=== PATIENT | female | born 1985 | race Caucasian/White ===

== ENCOUNTER 2018-11-15 19:23 | Emergency (ER) | payer OTHER ==
--- NOTE | 2018-11-15 19:39 | EDPHY ---
H & P Stated Complaint: RIGHT ACHILLES PAIN WHILE PLAYING VOLLYBALL - Personal History LMP (Females 10-55): 1-7 Days Ago Current Tetanus/Diphtheria Vaccine: Yes Current Tetanus Diphtheria and Acellular Pertussis (TDAP): Yes - Medical/Surgical History Hx Asthma: No Hx Chronic Respiratory Disease: No Hx Diabetes: No Hx Cardiac Disease: No Hx Renal Disease: No Hx Cirrhosis: No Hx Alcoholism: No Hx HIV/AIDS: No Hx Splenectomy or Spleen Trauma: No Other PMH: DENIES - Social History Smoking Status: Never smoked Time Seen by Provider: 11/15/18 19:38 HPI/ROS: CHIEF COMPLAINT: "I think something's wrong with my Achilles" HISTORY OF PRESENT ILLNESS: The patient is a 33 y/o female arriving with her friend and boyfriend complaining of a right ankle injury that occurred while playing volleyball this evening. She attempted to step forward towards the net and says, "it felt like someone threw a ball at the back of my foot." This was associated with an audible pop and she fell forward to the ground. She has dull pain in her ankle that is worse with straight leg raise. She describes a "weird " and "loose" sensation and though she can somewhat bear weight, she cannot walk without collapsing. She denies weakness in her toes or paresthesias anywhere. She denies prior ankle injuries or pain anywhere else. She took 800mg ibuprofen prior to arrival. She is generally healthy. REVIEW OF SYSTEMS: A ten system review of systems was performed and is negative with the exception of the items mentioned in the HPI. Past medical history: Denies Past surgical history: Denies Family history: Noncontributory Social history: Boyfriend and friend at bedside. Employed as abeoary. Scheduled to travel to [place] tomorrow. General Appearance: Alert. Vital signs reviewed. Eyes: Pupils equal and round, no conjunctival injection, no discharge. Anicteric. Neck: No lymphadenopathy, supple. Respiratory: Lungs are clear to auscultation; no wheezes, rales, or rhonchi. Cardiovascular: Regular rate and rhythm; no murmur, rub, or gallop. Gastrointestinal: Abdomen is soft and nontender, no masses or organomegaly. Skin: Warm and dry, no rashes on exposed skin, normal color. Back: Nontender to palpation over the thoracolumbar spine. No CVAT. Extremities: Pain with straight leg raise of her right leg. Tender to palpation over the Achilles tendon on the right with mild swelling above the heel on the right. No response with Burnett test of her right calf. Unable to dorsiflex right foot. Pulses: 2+ DP bilaterally. Neurological: Alert and oriented. Moving all four extremities easily and equally. Sensation intact to light touch over both LEs. Psychiatric: Normal affect. (Elinor Campa) Constitutional: Initial Vital Signs Temperature (C) 36.4 C 11/15/18 19:24 Heart Rate 69 11/15/18 19:24 Respiratory Rate 18 11/15/18 19:24 Blood Pressure 134/89 H 11/15/18 19:24 O2 Sat (%) 98 11/15/18 19:24 O2 Delivery Mode Room Air Allergies/Adverse Reactions: No Known Allergies Allergy (Unverified 11/15/18 19:27) Home Medications: Medication Instructions Recorded NK [No Known Home Meds] 11/15/18 Medical Decision Making - Diagnostics Imaging: Discussed imaging studies w/ train caller Radiologist, I viewed and interpreted images myself - Diagnostics Imaging Results: MRI shows a complete ruptured Achilles. Interpreted by Dr. Valencia. (Román Deluca) ED Course/Re-evaluation: 2112: I assumed care of patient from Dr. Campa at shift change. Lower extremity MRI pending. (Luis Carlos Jean) This is a healthy 33 y/o female who presents with likely Achilles tendon rupture secondary to stepping forward while playing volleyball tonight. She has no response in her right ankle with Burnett test. Plan for lower extremity MRI. Care will be transferred to Dr. Deluca at change of shift. MRI pending. (Elinor Campa) Differential Diagnosis: I considered a differential diagnosis that includes but is not limited to partial or complete calcaneal tendon rupture, strain, fracture dislocation of bone. (Elinor Campa) Other Provider: [id number] Jean pending MRI results to evaluate for possible Achilles tendon rupture. MRI consistent with acute was rupture. Patient has been placed in a posterior splint with her toe pointed. I have inspected the splint. She has got good immobility, normal perfusion. She is comfortable. She has been given crutches. Will refer to Orthopedic surgery for follow-up. (Román Deluca) Departure - Departure Disposition: Home, Routine, Self-Care Clinical Impression: Achilles rupture, right Qualifiers: Encounter type: initial encounter Qualified Code(s): S86.011A - Strain of right Achilles tendon, initial encounter Condition: Good Instructions: Achilles Tendon Rupture (ED) Additional Instructions: Take ibuprofen, 600 mg every 8 hr. You may alternate with acetaminophen, 1000 mg every 8 hr. Referrals: Yemi Schwartz MD [Medical Doctor] - As per Instructions Stand Alone Forms: Airline Excuse Report Scribed for: Elinor Campa Report Scribed by: Tenisha Burrows Date of Report: 11/15/18 Time of Report: 19:56 Physician Review and Approval Statement: 11/15/18 19:38 Portions of this note were transcribed by the medical lab director. I, Dr. Elinor Campa, personally performed the history, physical exam, and medical decision- making; and confirmed the accuracy of the information in the transcribed note. ( Elinor Campa)
[2018-11-15 23:42] VITALS: BP 119/81
== END 2018-11-15 23:40 | disposition home or self-care (01) ==
PROC: 2W3LX1Z Immobilization of Right Lower Extremity using Splint (ICD-10-PCS; principal; 2018-11-15)
DX: S86.011A Strain of right Achilles tendon, initial encounter (principal); Y93.68 Activity, volleyball (beach) (court); W18.49XA Other slipping, tripping and stumbling without falling, initial encounter; Y92.39 Other specified sports and athletic area as the place of occurrence of the external cause